=== PATIENT | female | born 1975 | race Caucasian/White ===

== ENCOUNTER 2022-09-21 14:58 | Outpatient (CLI) | payer OTHER, SELFPAY | END 2022-09-21 14:59 | disposition home or self-care (01) | LOC: NFLDREF 15:00 | PROVIDERS: Visit Provider Obstetrics & Gynecology | DX: N92.6 Irregular menstruation, unspecified (principal) | CPT/HCPCS: 83001 ==

== ENCOUNTER 2022-10-15 09:40 | Outpatient (CLI) | payer OTHER, SELFPAY ==
--- NOTE | 2022-10-15 09:45 | CRLHL7_ITS ---
For Patients: As a result of the Century Cures Act, medical imaging exams and procedure reports are released immediately into your electronic medical record. You may view this report before your referring provider. If you have questions, please contact your health care provider. CLINICAL HISTORY: Perimenopausal TECHNIQUE: 2D petersen scale and color Doppler images were acquired of the pelvis using a transvaginal approach. FINDINGS: On transvaginal imaging, the myometrium has a normal uniform echotexture. The endometrial lining measures 7 mm in thickness. Incidental cervical nabothian cysts. Uterus measures 7.1 x 3.1 x 4.1 cm. The left ovary measures 2.2 x 1.2 x 0.8 cm in size and the right ovary measures 1.9 x 1.2 x 1.0 cm. The ovaries demonstrate normal arterial and venous blood flow on color Doppler analysis. There are no suspicious fluid collections within the cul-de-sac. IMPRESSION: Endometrial thickness 7 millimeters. No endometrial fluid or uterine fibroid. Dictated by Frank Marley MD @ 10/15/2022 10:47:48 AM (Electronically Signed)
== END 2022-10-15 09:41 | disposition home or self-care (01) ==
LOC: US 09:41
PROVIDERS: Visit Provider Obstetrics & Gynecology
DX: N92.6 Irregular menstruation, unspecified (principal); R93.89 Abnormal findings on diagnostic imaging of other specified body structures; Z78.0 Asymptomatic menopausal state
CPT/HCPCS: 76830